=== PATIENT | female | born 1975 ===

== ENCOUNTER 2017-01-17 15:13 | Observation (INO) | payer SELFPAY ==
--- NOTE | 2017-01-17 16:21 | ED PDOC ---
HPI: Chest Pain Time Seen by Provider: 01/17/17 16:06 Chief Complaint (Nursing): Chest Pain Chief Complaint (Provider): Chest Pain History Per: Patient History/Exam Limitations: no limitations Onset/Duration Of Symptoms: Days (x 4) Current Symptoms Are (Timing): Still Present Quality: Other (Pinching) Additional Complaint(s): Loly Moyer is a 41 year old female, with no previous medical history, who presents to the emergency department complaining of constant left sided chest pinching onset for 4 days associated with nausea and shortness of breath. She denies any vomiting, pain radiation, traveling, smoking, calf pain or use of oral contraceptive pills. PMD: Dr. Ismael Padron Past Medical History Reviewed: Historical Data, Nursing Documentation, Vital Signs Vital Signs: Last Vital Signs Temp 98.4 F 01/18/17 11:51 Pulse 64 01/18/17 11:51 Resp 18 01/18/17 11:51 BP 104/70 01/18/17 11:51 Pulse Ox 99 01/18/17 11:51 - Medical History PMH: No Chronic Diseases - Family History Family History: States: Unknown Family Hx - Social History Current smoker - smoking cessation education provided: No Alcohol: Social - Immunization History Hx Tetanus Toxoid Vaccination: Yes Hx Influenza Vaccination: No Hx Pneumococcal Vaccination: No - Home Medications Home Medications: Ambulatory Orders Medication Instructions Recorded Ibuprofen [Motrin Tab] 400 mg PO Q6 PRN tab 01/18/17 - Allergies Allergies/Adverse Reactions: Allergies Allergy/AdvReac Type Severity Reaction Status Date / Time shrimp Allergy SWELLING Verified 06/01/16 19:30 seafood Allergy RASH Uncoded 06/01/16 19:30 Review of Systems ROS Statement: Except As Marked, All Systems Reviewed And Found Negative Cardiovascular: Positive for: Chest Pain (constant left sided "pinching" ) Respiratory: Positive for: Shortness of Breath Gastrointestinal: Positive for: Nausea. Negative for: Vomiting Musculoskeletal: Negative for: Leg Pain (calf pain ) Physical Exam - Reviewed Nursing Documentation Reviewed: Yes Vital Signs Reviewed: Yes - Physical Exam Appears: Positive for: Well, Non-toxic, No Acute Distress Head Exam: Positive for: ATRAUMATIC, NORMAL INSPECTION, NORMOCEPHALIC Skin: Positive for: Normal Color, Warm, Dry Eye Exam: Positive for: EOMI, Normal appearance, PERRL ENT: Positive for: Normal ENT Inspection Neck: Positive for: Normal, Painless ROM, Supple Cardiovascular/Chest: Positive for: Regular Rate, Rhythm. Negative for: Chest Non Tender (tenderness on left chest wall) Respiratory: Positive for: CNT, Normal Breath Sounds Gastrointestinal/Abdominal: Positive for: Normal Exam, Bowel Sounds, Soft. Negative for: Tenderness Back: Positive for: Normal Inspection Extremity: Positive for: Normal ROM. Negative for: Pedal Edema, Calf Tenderness Neurologic/Psych: Positive for: Alert, Oriented - Laboratory Results Result Diagrams: 01/17/17 16:35 01/17/17 16:35 - ECG O2 Sat by Pulse Oximetry: 98 (RA) Pulse Ox Interpretation: Normal Medical Decision Making Medical Decision Making: Initial Impression: Chest Pain Initial Plan: --Comp Metabolic Panel --Troponin I --Urine Dipstick --Urine --CBC w/ diff --D Dimer --PTT --PT --CXR: two views (PA/LAT) --reevaluation Scribe Attestation: Documented by Tyler Betancourt, acting as a scribe for Danuta Rosales MD. Provider Scribe Attestation: All medical record entries made by the Scribe were at my direction and personally dictated by me. I have reviewed the chart and agree that the record accurately reflects my personal performance of the history, physical exam, medical decision making, and the department course for this patient. I have also personally directed, reviewed, and agree with the discharge instructions and disposition. Disposition - Clinical Impression Clinical Impression: Chest pain - Disposition Disposition: Transfer of Care Disposition Time: 17:00 Condition: STABLE Patient Signed Over To: Rohan Palomo
--- NOTE | 2017-01-17 17:05 | ED PDOC ---
- Laboratory Results Result Diagrams: 01/17/17 16:35 01/17/17 16:35 Interpretation Of Abn Labs: no acute - ECG ECG: Positive for: Interpreted By Me, Viewed By Me ECG Rhythm: Positive for: Normal QRS, Normal ST Segment, Sinus Rhythm O2 Sat by Pulse Oximetry: 98 (RA) Pulse Ox Interpretation: Normal - Radiology X-Ray: Read By Radiologist X-Ray Interpretation: No Acute Disease - Progress ED Course And Treament: 1704: Stable. AAOx3. Took over care from Dr. Rosales. Pending CXR, labs for chest pain evaluation. PCP Dr. Padron. 1857: Stable. Spoke with Dr. Padron. Will admit tele and give further orders when pt. reaches floor. Disposition - Clinical Impression Clinical Impression: Chest pain - POA Present On Arrival: None Core Measure Indicators: Chest Pain - Disposition Disposition: Hospitalized as Observation Patient Disposition Time: 18:58 Condition: FAIR
[2017-01-17 17:11] LABS: BASO % 0.3 % (0.0-2.0); EOS # 0.1 K/uL (0.0-0.7); EOS % 0.7 % (0.0-4.0); HEMOGLOBIN 12.5 g/dL (12.0-16.0); MEAN CELL VOLUME 83.4 fl (81.0-99.0); MEAN CORPUSCULAR HEMOGLOBIN 28.1 pg (27.0-31.0); MEAN CORPUSCULAR HGB CONC 33.6 g/dL (33.0-37.0); MEAN PLATELET VOLUME 9.8 fl (7.2-11.7); MONO # 0.6 K/uL (0.0-0.8); MONO % 6.6 % (0.0-10.0); NEUT # 5.9 K/uL (1.8-7.0); NEUT % 61.4 % (50.0-75.0); RBC 4.45 Mil/uL (3.80-5.20); RED CELL DISTRIBUTION WIDTH 12.9 % (11.5-14.5); WHITE BLOOD COUNT 9.6 K/uL (4.8-10.8)
[2017-01-17 17:15] LABS: ALB/GLOB RATIO 1.3 (1.0-2.1); ALBUMIN 4.4 g/dL (3.5-5.0); ALT/SGPT 31 U/L (9-52); AST/SGOT 22 U/L (14-36); BLOOD UREA NITROGEN 18 mg/dl (7-17); CALCIUM 9.3 mg/dL (8.4-10.2); GFR AFRICAN-AMERICAN > 60; GFR NON-AFRICAN AMERICAN > 60
[2017-01-17 17:31] LABS: PARTIAL THROMBOPLASTIN TIME 28.2 Seconds (25.6-37.1); PROTHROMBIN TIME 11.6 Seconds (9.8-13.1)
--- NOTE | 2017-01-17 17:32 | RAD ---
HISTORY: Chest pain. COMPARISON: No prior. TECHNIQUE: Chest PA and lateral FINDINGS: LUNGS: No active pulmonary disease. PLEURA: No significant pleural effusion identified. No pneumothorax apparent. CARDIOVASCULAR: Normal. OSSEOUS STRUCTURES: No significant abnormalities. VISUALIZED UPPER ABDOMEN: Normal. OTHER FINDINGS: None. IMPRESSION: No active disease.
[2017-01-18 04:51] VITALS: RESP 18
--- NOTE | 2017-01-18 10:42 | CP.PCM.CON ---
History of Present Illness - History of Present Illness History of Present Illness: 41 female who presents to the emergency room complaining of a 4 day history of constant left-sided chest pain Pain is chronic and constant worse with palpation / lying on left side / and movement of her left arm No relation exertion EKG: Normal Troponins: Negative PMH: None On Physical exam the pain is reproducible Past Patient History - Past Medical History & Family History Past Medical History?: No - Past Social History Smoking Status: Never Smoked - CARDIAC Hx Cardiac Disorders: No - PULMONARY Hx Respiratory Disorders: No - NEUROLOGICAL Hx Neurological Disorder: No - HEENT Hx HEENT Problems: No - RENAL Hx Chronic Kidney Disease: No - ENDOCRINE/METABOLIC Hx Endocrine Disorders: No - HEMATOLOGICAL/ONCOLOGICAL Hx Blood Disorders: No - INTEGUMENTARY Hx Dermatological Problems: No - MUSCULOSKELETAL/RHEUMATOLOGICAL Hx Musculoskeletal Disorders: No Hx Falls: No - GASTROINTESTINAL Hx Gastrointestinal Disorders: No - GENITOURINARY/GYNECOLOGICAL Hx Genitourinary Disorders: No - PSYCHIATRIC Hx Psychophysiologic Disorder: No Hx Substance Use: No - SURGICAL HISTORY Hx Surgeries: No - ANESTHESIA Hx Anesthesia: No Meds Allergies/Adverse Reactions: Allergies Allergy/AdvReac Type Severity Reaction Status Date / Time shrimp Allergy SWELLING Verified 06/01/16 19:30 seafood Allergy RASH Uncoded 06/01/16 19:30 - Medications Medications: Current Medications Ibuprofen (Motrin Tab) 400 mg PO Q6 PRN PRN Reason: Pain, moderate (4-7) Last Admin: 01/18/17 08:43 Dose: 400 mg Physical Exam - Constitutional Appears: Well - Head Exam Head Exam: NORMAL INSPECTION - Eye Exam Eye Exam: Normal appearance Pupil Exam: NORMAL ACCOMODATION - ENT Exam ENT Exam: Normal Exam - Neck Exam Neck exam: Positive for: Normal Inspection - Respiratory Exam Respiratory Exam: NORMAL BREATHING PATTERN - Cardiovascular Exam Cardiovascular Exam: REGULAR RHYTHM Additional comments: Left chest wall is tender to touch Results - Vital Signs Recent Vital Signs: Last Vital Signs Temp 98.1 F 01/18/17 07:48 Pulse 56 L 01/18/17 09:00 Resp 18 01/18/17 07:48 BP 98/64 L 01/18/17 07:48 Pulse Ox 99 01/18/17 07:48 - Labs Result Diagrams: 01/17/17 16:35 01/17/17 16:35 Labs: Laboratory Results - last 24 hr 01/18/17 05:35 Troponin I < 0.0120 Assessment & Plan (1) Chest pain Assessment and Plan: The pains are non cardiac / musculoskeletal in origin Pt may be d/c ed to f/u with PMD Status: Acute
--- NOTE | 2017-01-18 11:44 | CP.PCM.HP ---
<Babak Martinez - Last Filed: 01/18/17 14:15> History of Present Illness - History of Present Illness History of Present Illness: 41 year old female with an unremarkable PMHx presented to ED with a 4 day history of pinching chest pain around her LUSB. Chest pain was nonradiating and constant and associated with nausea and SOB. No other complaints. Denies inciting events, fever/chills, headaches, changes in vision, palpitations, V/D, diaphoreiss during episodes, pain in left arm/jaw, urinary symptoms, numbness/ tingling. PMD: Dr. Padron PMHx: none as per pt PsurgHx: none as per pt Meds: none ALL: shrimp Social: denies ETOH, tobacco, drug abuse FamilyHx: noncontributory ED COURSE: Labs Ordered: Comp Metabolic Panel Troponin I Urine Dipstick Urine CBC w/ diff D Dimer PTT PT Imaging ordered: CXR Admitted to telemetry Present on Admission - Present on Admission Any Indicators Present on Admission: No Review of Systems - Constitutional Constitutional: As Per HPI Past Patient History - Past Medical History & Family History Past Medical History?: No - Past Social History Smoking Status: Never Smoked Alcohol: None Drugs: Denies Home Situation {Lives}: With Family Domestic Violence: Negative - CARDIAC Hx Cardiac Disorders: No - PULMONARY Hx Respiratory Disorders: No - NEUROLOGICAL Hx Neurological Disorder: No - HEENT Hx HEENT Problems: No - RENAL Hx Chronic Kidney Disease: No - ENDOCRINE/METABOLIC Hx Endocrine Disorders: No - HEMATOLOGICAL/ONCOLOGICAL Hx Blood Disorders: No - INTEGUMENTARY Hx Dermatological Problems: No - MUSCULOSKELETAL/RHEUMATOLOGICAL Hx Musculoskeletal Disorders: No Hx Falls: No - GASTROINTESTINAL Hx Gastrointestinal Disorders: No - GENITOURINARY/GYNECOLOGICAL Hx Genitourinary Disorders: No - PSYCHIATRIC Hx Psychophysiologic Disorder: No Hx Substance Use: No - SURGICAL HISTORY Hx Surgeries: No - ANESTHESIA Hx Anesthesia: No Meds Home Medications: Home Medication List Medication Instructions Recorded Confirmed Type Ibuprofen [Motrin Tab] 400 mg PO Q6 PRN tab 01/18/17 Rx Allergies/Adverse Reactions: Allergies Allergy/AdvReac Type Severity Reaction Status Date / Time shrimp Allergy SWELLING Verified 06/01/16 19:30 seafood Allergy RASH Uncoded 06/01/16 19:30 Physical Exam - Constitutional Appears: Well, Non-toxic, No Acute Distress - Head Exam Head Exam: ATRAUMATIC, NORMOCEPHALIC - Eye Exam Eye Exam: EOMI, PERRL. absent: Conjunctival injection, Scleral icterus - ENT Exam ENT Exam: Mucous Membranes Moist - Neck Exam Neck exam: Positive for: Normal Inspection - Respiratory Exam Respiratory Exam: Clear to Auscultation Bilateral, NORMAL BREATHING PATTERN. absent: Accessory Muscle Use, Rales, Rhonchi, Wheezes - Cardiovascular Exam Cardiovascular Exam: REGULAR RHYTHM, RRR, +S1, +S2. absent: Tachycardia, Gallop , JVD, Rubs, Systolic Murmur - GI/Abdominal Exam GI & Abdominal Exam: Normal Bowel Sounds, Soft. absent: Distended, Firm, Guarding, Tenderness - Extremities Exam Extremities exam: Positive for: normal inspection, pedal pulses present. Negative for: calf tenderness, pedal edema, tenderness - Neurological Exam Neurological exam: Alert, CN II-XII Intact, Oriented x3 - Psychiatric Exam Psychiatric exam: Normal Affect, Normal Mood - Skin Skin Exam: Dry, Intact Results - Vital Signs Recent Vital Signs: Last Vital Signs Temp 98.1 F 01/18/17 07:48 Pulse 56 L 01/18/17 09:00 Resp 18 01/18/17 07:48 BP 98/64 L 01/18/17 07:48 Pulse Ox 99 01/18/17 07:48 - Labs Result Diagrams: 01/17/17 16:35 01/17/17 16:35 Labs: Laboratory Results - last 24 hr 01/18/17 05:35 Troponin I < 0.0120 Assessment & Plan (1) Chest pain, rule out acute myocardial infarction Assessment and Plan: admitted to tele monitor vitals f/u labs and troponin levels cardiology consult appreciated Status: Acute Priority: High <Padron,Ismael K - Last Filed: 01/26/17 16:33> Results - Vital Signs Recent Vital Signs: Last Vital Signs Temp 98.4 F 01/18/17 11:51 Pulse 64 01/18/17 11:51 Resp 18 01/18/17 11:51 BP 104/70 01/18/17 11:51 Pulse Ox 98 01/18/17 17:44 - Labs Result Diagrams: 01/17/17 16:35 01/17/17 16:35 Assessment & Plan - Assessment and Plan (Free Text) Assessment: Patient was personally seen and examined by me in rounds with residents. Available labs and diagnostic data reviewed. Case, patient's condition and management plan discussed with residents in rounds. Agree with resident's progress note. Plan: As ordered.
--- NOTE | 2017-01-18 11:44 | CP.PCM.DIS ---
Provider - Provider Date of Admission: 01/17/17 18:55 Attending physician: Ismael Padron MD Time Spent in preparation of Discharge (in minutes): 35 Hospital Course - Lab Results Lab Results: Most Recent Lab Values WBC 9.6 K/uL (4.8-10.8) 01/17/17 16:35 RBC 4.45 Mil/uL (3.80-5.20) 01/17/17 16:35 Hgb 12.5 g/dL (12.0-16.0) 01/17/17 16:35 Hct 37.1 % (34.0-47.0) 01/17/17 16:35 MCV 83.4 fl (81.0-99.0) 01/17/17 16:35 MCH 28.1 pg (27.0-31.0) 01/17/17 16:35 MCHC 33.6 g/dL (33.0-37.0) 01/17/17 16:35 RDW 12.9 % (11.5-14.5) 01/17/17 16:35 Plt Count 195 K/uL (130-400) 01/17/17 16:35 MPV 9.8 fl (7.2-11.7) 01/17/17 16:35 Neut % (Auto) 61.4 % (50.0-75.0) 01/17/17 16:35 Lymph % (Auto) 31.0 % (20.0-40.0) 01/17/17 16:35 Eaton % (Auto) 6.6 % (0.0-10.0) 01/17/17 16:35 Eos % (Auto) 0.7 % (0.0-4.0) 01/17/17 16:35 Baso % (Auto) 0.3 % (0.0-2.0) 01/17/17 16:35 Neut # 5.9 K/uL (1.8-7.0) 01/17/17 16:35 Lymph # 3.0 K/uL (1.0-4.3) 01/17/17 16:35 Eaton # 0.6 K/uL (0.0-0.8) 01/17/17 16:35 Eos # 0.1 K/uL (0.0-0.7) 01/17/17 16:35 Baso # 0.0 K/uL (0.0-0.2) 01/17/17 16:35 PT 11.6 Seconds (9.8-13.1) 01/17/17 16:35 INR 1.0 (0.9-1.2) 01/17/17 16:35 APTT 28.2 Seconds (25.6-37.1) 01/17/17 16:35 D-Dimer, Quantitative 95 ng/mlDDU (0-230) 01/17/17 16:35 Sodium 142 mmol/l (132-148) 01/17/17 16:35 Potassium 4.3 MMOL/L (3.6-5.0) 01/17/17 16:35 Chloride 106 mmol/L (98-107) 01/17/17 16:35 Carbon Dioxide 26 mmol/L (22-30) 01/17/17 16:35 Anion Gap 14 (10-20) 01/17/17 16:35 BUN 18 mg/dl (7-17) H 01/17/17 16:35 Creatinine 1.0 mg/dL (0.7-1.2) 01/17/17 16:35 Est GFR ( Amer) > 60 01/17/17 16:35 Est GFR (Non-Af Amer) > 60 01/17/17 16:35 Random Glucose 73 mg/dL (65-105) 01/17/17 16:35 Calcium 9.3 mg/dL (8.4-10.2) 01/17/17 16:35 Total Bilirubin 0.8 mg/dl (0.2-1.3) 01/17/17 16:35 AST 22 U/L (14-36) 01/17/17 16:35 ALT 31 U/L (9-52) 01/17/17 16:35 Alkaline Phosphatase 93 U/L (38-126) 01/17/17 16:35 Troponin I < 0.0120 ng/mL (0.00-0.120) 01/18/17 05:35 Total Protein 7.7 G/DL (6.3-8.2) 01/17/17 16:35 Albumin 4.4 g/dL (3.5-5.0) 01/17/17 16:35 Globulin 3.3 gm/dL (2.2-3.9) 01/17/17 16:35 Albumin/Globulin Ratio 1.3 (1.0-2.1) 01/17/17 16:35 - Hospital Course Hospital Course: 41 y/o pt with unremarkable PMHx presented with a 4 day hx of pinching like chest pain associated with SOB and nausea. Pt denied other common cardiac signs such as PARKER, Palpitations, left arm/jaw pain, diaphoresis. EKG showed NSR w/o acute changes. Labs were unremarkable. Troponin was negative x3. Cardiology was consulted who ruled out cardiac etiology and considered pain msk in origin. After an uneventful hospital stay, pt was discharged in stable condition. Discharge Exam - Head Exam Head Exam: NORMAL INSPECTION - Eye Exam Eye Exam: Normal appearance Pupil Exam: NORMAL ACCOMODATION - Respiratory Exam Respiratory Exam: Clear to PA & Lateral, NORMAL BREATHING PATTERN, UNREMARKABLE - Cardiovascular Exam Cardiovascular Exam: REGULAR RHYTHM - GI/Abdominal Exam GI & Abdominal Exam: Normal Bowel Sounds, Unremarkable - Extremities Exam Extremities exam: normal inspection - Neurological Exam Neurological exam: Alert, CN II-XII Intact, Oriented x3 Discharge Plan - Follow Up Plan Condition: FAIR Disposition: HOME/ ROUTINE Instructions: Chest Pain (DC) Additional Instructions: patient cleared for discharge to Home today by / f/u with in 1 week
[2017-01-18 11:52] VITALS: BP 104/70; PULSE 64; TEMP 98.4
[2017-01-18 17:45] VITALS: O2SAT 98
--- NOTE | 2017-01-20 13:06 | CARD ---
APPROVED REPORT EKG Measurement Heart [id number] <Conclusion> Normal sinus rhythm Normal ECG
== END 2017-01-18 14:07 | disposition home or self-care (01) ==
LOC: H.ER 15:13 → H.ERHOLD 18:55 → H.TEL 23:04
PROVIDERS: ADMIT Internal Medicine; ATTEND Internal Medicine
DX: M94.0 Chondrocostal junction syndrome [Tietze] (principal); Z91.013 Allergy to seafood
CPT/HCPCS: 36415; 71020; 80053; 81025; 84484; 85025; 85378; 85610; 85730; 96374; 99285; G0378; J2270

== ENCOUNTER 2017-10-11 20:54 | Emergency (ER) | payer SELFPAY ==
[2017-10-11 21:08] VITALS: BP 117/77; PULSE 78; RESP 16; TEMP 98.7; O2SAT 100
--- NOTE | 2017-10-11 21:55 | ED PDOC ---
HPI: Chest Pain Time Seen by Provider: 10/11/17 21:12 Chief Complaint (Nursing): Chest Pain History Per: Patient History/Exam Limitations: no limitations Onset/Duration Of Symptoms: Hrs Current Symptoms Are (Timing): Better Quality: Tightness Additional Complaint(s): No PMHx p/w multiple complaints. States that since this morning she has experienced midsternal chest pressure associated with bilateral hand numbness, also dizziness. States symptoms are resolving upon arrival to ED but still present. Denies exertional chest pain, shortness of breath, recent travel/ immobilization/surgery. Denies family hx of heart attack. Patient came to ER because she was concerned about heart attack. - Risk Factors PE Risk Factors: Neg: Extremity Immobilization/Fx, Decreased Mobilty /Activity, Recent Major Surgery, Recent Hospitalization, Active Cancer, Previous DVT, Previous PE, CHF, Venous Stasis, Estrogen Usage, , Post-, Recent Major Trauma TAD Risk Factors: Neg: Hypertension, Connective Tissue Disease, Marfan's Syndrome, Preston- Danlos Syndrome, Aortic Valve Disease, Active , Tumer's Syndrome, First Degree Relative With TAD, Sudden Onset Of Pain, Migration Of Pain Past Medical History Reviewed: Historical Data, Nursing Documentation, Vital Signs Vital Signs: Last Vital Signs Temp 98.7 F 10/11/17 21:04 Pulse 78 10/11/17 21:04 Resp 16 10/11/17 21:04 BP 117/77 10/11/17 21:04 Pulse Ox 100 10/11/17 21:59 - Medical History PMH: No Chronic Diseases Denies: Chronic Kidney Disease - Surgical History Surgical History: No Surg Hx - Family History Family History: States: Unknown Family Hx - Immunization History Hx Tetanus Toxoid Vaccination: Yes Hx Influenza Vaccination: No Hx Pneumococcal Vaccination: No - Home Medications Home Medications: Ambulatory Orders Medication Instructions Recorded No Known Home Med 10/11/17 - Allergies Allergies/Adverse Reactions: Allergies Allergy/AdvReac Type Severity Reaction Status Date / Time shrimp Allergy SWELLING Verified 10/11/17 21:04 seafood Allergy RASH Uncoded 10/11/17 21:04 YINA Risk Score for UA/NSTEMI - YINA Risk Score Age > 64: NO 3 or more CAD Risk Factors: NO Known CAD (Stenosis greater than 50%): NO Aspirin use in past 7 days: NO Severe Angina: NO EKG ST changes greater than 0.5mm: NO YINA Score: 0 Risk %: 5% Curb-65 Severity Score - CURB-65 Severity Score Confusion: No Bun >19mg/dl (>7mmol/L): No Respiratory Rate greater than/equal to 30: No Systolic BP <90 or Diastolic BP less than/equal 60mmHg: No Age >64: No Curb-65 Score: 0 Percentage 30-day mortality: 0.6% Wells Criteria for PE - Wells Criteria for Pulmonary Embolism Clinical Signs and Symptoms of DVT: No P.E is #1 Diagnosis, or Equally Likely: No Heart Rate >100: No Immobilization at least 3 days;Surgery previous 4 weeks: No Previous, objectively diagnosed PE or DVT: No Hemoptysis: No Malignancy w/treatment within 6 months, or palliative: No Total Score: 0 Review of Systems Cardiovascular: Positive for: Chest Pain Respiratory: Negative for: Shortness of Breath Neurological: Positive for: Numbness Physical Exam - Reviewed Nursing Documentation Reviewed: Yes Vital Signs Reviewed: Yes - Physical Exam Appears: Positive for: Well, Non-toxic, No Acute Distress Head Exam: Positive for: ATRAUMATIC, NORMAL INSPECTION, NORMOCEPHALIC Skin: Positive for: Normal Color, Warm, DRY Eye Exam: Positive for: EOMI, Normal appearance, PERRL ENT: Positive for: Normal ENT Inspection Neck: Positive for: Normal, Painless ROM Cardiovascular/Chest: Positive for: Regular Rate, Rhythm Respiratory: Positive for: CNT, Normal Breath Sounds Gastrointestinal/Abdominal: Positive for: Normal Exam, Soft Back: Positive for: Normal Inspection Extremity: Positive for: Normal ROM Neurologic/Psych: Positive for: Alert, oracle erp architect II-XII, Oriented. Negative for: Motor/Sensory Deficits - Laboratory Results Result Diagrams: 10/11/17 21:59 10/11/17 21:59 - ECG ECG Rhythm: Positive for: Normal QRS, Normal ST Segment, Sinus Rhythm (rate of 73) O2 Sat by Pulse Oximetry: 100 Medical Decision Making Medical Decision MakinPM A/P: No PMHx p/w chest pain, hand numbness, resolving -EKG is normal, no ischemia -unlikely ACS, atypical chest pain and symptoms -will get cardiac biomarkers, labs, CXR -pending workup, will recommend outpatient workup. 130 Patient left before treatment was completed. IV was removed prior to leaving by nurse. Disposition - Clinical Impression Clinical Impression: Atypical chest pain - Disposition Disposition: Eloped Disposition Time: 01:30 Condition: UNKNOWN Forms: [employer] (Hungarian)
[2017-10-11 22:23] LABS: BASO % 0.5 % (0.0-2.0); EOS # 0.1 K/uL (0.0-0.7); EOS % 0.9 % (0.0-4.0); HEMOGLOBIN 12.7 g/dL (12.0-16.0); LYMPH # 3.7 K/uL (1.0-4.3); LYMPH % 42.1 % (20.0-40.0); MEAN CELL VOLUME 81.7 fl (81.0-99.0); MEAN CORPUSCULAR HEMOGLOBIN 28.8 pg (27.0-31.0); MEAN CORPUSCULAR HGB CONC 35.3 g/dL (33.0-37.0); MEAN PLATELET VOLUME 10.1 fl (7.2-11.7); MONO # 0.5 K/uL (0.0-0.8); MONO % 5.9 % (0.0-10.0); NEUT # 4.4 K/uL (1.8-7.0); NEUT % 50.6 % (50.0-75.0); NRBC % 0.3 % (0.0-0.0); RBC 4.4 Mil/uL (3.80-5.20); RED CELL DISTRIBUTION WIDTH 12.8 % (11.5-14.5); WHITE BLOOD COUNT 8.7 K/uL (4.8-10.8)
--- NOTE | 2017-10-11 23:11 | RAD ---
EXAM: XR Chest, 2 Views EXAM DATE/TIME: 10/11/2017 9:32 PM CLINICAL HISTORY: 42 years old, female; Pain; Chest pain TECHNIQUE: Frontal and lateral views of the chest. COMPARISON: No relevant prior studies available. FINDINGS: The mediastinal cardiac silouette is normal in size. The lungs are clear. No effusions are identified. The osseous structures are normal. IMPRESSION: No acute findings.
[2017-10-12 01:39] LABS: BLOOD UREA NITROGEN 15 mg/dl (7-17); CALCIUM 9.1 mg/dL (8.4-10.2); GFR AFRICAN-AMERICAN > 60; GFR NON-AFRICAN AMERICAN > 60
--- NOTE | 2017-10-13 18:19 | CARD ---
APPROVED REPORT EKG Measurement Heart [id number] [place] 134P56 [id number] <Conclusion> Normal sinus rhythm Normal ECG
== END 2017-10-12 01:33 | disposition left against medical advice (07) ==
LOC: H.ER 20:54
DX: R07.89 Other chest pain (principal)
CPT/HCPCS: 71046; 80048; 81025; 84484; 85025; 93005; 96374; 99283; J1885

== ENCOUNTER 2017-10-16 09:29 | Emergency (ER) | payer MEDICAID ==
[2017-10-16 09:45] VITALS: BP 117/58
[2017-10-16] MEDS ORDERED: Promethazine/Cod 6.25mg-10mg/5ml Syr UD PO STA (10:09)
[2017-10-16] MEDS ORDERED: Promethazine/Cod 6.25mg-10mg/5ml Syr UD ONE (10:19)
--- NOTE | 2017-10-16 10:37 | ED PDOC ---
History of Present Illness History of Present Illness: 42 year old female presents to the emergency department with a complaint of flu- like symptoms including fever, dry cough, pleuritic chest pain, nasal congestion , sore throat, bodyaches, headache and decreased appetite ongoing for 3 days. She denied any vomiting, diarrhea, shortness of breath, recent sick contacts or travel. Patient stated she has only been taking Nyquil at night for relief. PMD: Ismael Padron MD HPI: Influenza Time Seen by Provider: 10/16/17 09:48 Chief Complaint: Flu-like Symptoms Chief Complaint (Provider): Flu-like Symptoms History Per: Patient Exam Limitations: no limitations Onset/Duration Of Symptoms: Days (x3) Past Medical History Reviewed: Historical Data, Nursing Documentation, Vital Signs Vital Signs: Last Vital Signs Temp 102 F H 10/16/17 09:42 Pulse 128 H 10/16/17 09:42 Resp 18 10/16/17 09:42 BP 117/58 L 10/16/17 09:42 Pulse Ox 95 10/16/17 09:42 - Medical History PMH: No Chronic Diseases Denies: Chronic Kidney Disease - Surgical History Surgical History: No Surg Hx - Family History Family History: States: Unknown Family Hx - Social History Current smoker - smoking cessation education provided: No Ex-Smoker (has not smoked in the last 12 months): No Alcohol: None Drugs: Denies - Immunization History Hx Tetanus Toxoid Vaccination: Yes Hx Influenza Vaccination: No Hx Pneumococcal Vaccination: No - Home Medications Home Medications: Ambulatory Orders Medication Instructions Recorded Ibuprofen [Motrin] 600 mg PO Q8 PRN #20 tab 10/16/17 Oseltamivir [Tamiflu] 75 mg PO BID #10 cap 10/16/17 - Allergies Allergies/Adverse Reactions: Allergies Allergy/AdvReac Type Severity Reaction Status Date / Time shrimp Allergy SWELLING Verified 10/16/17 09:40 seafood Allergy RASH Uncoded 10/11/17 21:04 Review of Systems ROS Statement: Except As Marked, All Systems Reviewed And Found Negative Constitutional: Positive for: Fever, Other (bodyaches) ENT: Positive for: Nose Congestion, Throat Pain Respiratory: Positive for: Cough (dry), Pleuritic Pain. Negative for: Shortness of Breath Gastrointestinal: Positive for: Other (decreased appetite). Negative for: Vomiting, Diarrhea Neurological: Positive for: Headache Physical Exam - Reviewed Nursing Documentation Reviewed: Yes Vital Signs Reviewed: Yes - Physical Exam Appears: Positive for: Non-toxic, No Acute Distress Head Exam: Positive for: ATRAUMATIC, NORMAL INSPECTION, NORMOCEPHALIC Skin: Positive for: Normal Color Eye Exam: Positive for: Normal appearance ENT: Positive for: Normal ENT Inspection Neck: Positive for: Normal, Supple Cardiovascular/Chest: Positive for: Chest Non Tender, Tachycardia (with regular rate) Respiratory: Positive for: Normal Breath Sounds. Negative for: Decreased Breath Sounds, Wheezing, Respiratory Distress Gastrointestinal/Abdominal: Positive for: Normal Exam, Soft. Negative for: Tenderness Back: Positive for: Normal Inspection Extremity: Positive for: Normal ROM (upper/lower) Neurologic/Psych: Positive for: Alert, Oriented Medical Decision Making Medical Decision Making: Initial Impression: Flu-like symptoms Differential Diagnosis: Influenza; Strep; Pharyngitis Initial Plan: * Urine * Motrin 600mg PO * Phenergan/codeine 5ml PO * Influenza A B * Rapid strep Scribe Attestation: Documented by Kayla Shin, acting as a scribe for Jaleel Brink MD. Provider Scribe Attestation: All medical record entries made by the Scribe were at my direction and personally dictated by me. I have reviewed the chart and agree that the record accurately reflects my personal performance of the history, physical exam, medical decision making, and the department course for this patient. I have also personally directed, reviewed, and agree with the discharge instructions and disposition. - ECG O2 Sat by Pulse Oximetry: 95 - Progress Re-evaluation Time: 11:45 Condition: Re-examined, Improved Disposition - Clinical Impression Clinical Impression: Influenza - Patient ED Disposition Is Patient to be Admitted: No Doctor Will See Patient In The: Office Counseled Patient/Family Regarding: Studies Performed, Diagnosis, Need For Followup - Disposition Referrals: [facility] [Outside] Disposition: Routine/Home Disposition Time: 11:45 Condition: IMPROVED Additional Instructions: Take your medications as instructed. Follow up with your PCP in 2-3 days. Prescriptions: Ibuprofen [Motrin] 600 mg PO Q8 PRN #20 tab PRN Reason: Fever >100.4 F Oseltamivir [Tamiflu] 75 mg PO BID #10 cap Instructions: Flu, Adult (DC) Print Language: TURKISH
[2017-10-16 11:25] VITALS: PULSE 73; RESP 16; TEMP 99.2
[2017-10-18 14:55] VITALS: O2SAT 95
== END 2017-10-16 12:05 | disposition home or self-care (01) ==
LOC: H.ER 09:29
DX: J11.1 Influenza due to unidentified influenza virus with other respiratory manifestations (principal)